=== PATIENT | male | born 1935 | race Hispanic/Latino ===

== ENCOUNTER → 2021-12-27 | Outpatient (CLI) | payer MEDICARE, OTHER ==
[~2021-12-27] MED LIST: IOHEXOL 350 MG/ML 100ML INFUS..BTL IV ONE
== END | disposition home or self-care (01) ==
LOC: EDBD 15:00 → RAH 18:18
PROVIDERS: ATTEND Internal Medicine
DX: J18.9 Pneumonia, unspecified organism (principal); I25.10 Atherosclerotic heart disease of native coronary artery without angina pectoris; I70.0 Atherosclerosis of aorta; K80.20 Calculus of gallbladder without cholecystitis without obstruction; E27.8 Other specified disorders of adrenal gland; R79.89 Other specified abnormal findings of blood chemistry; Z93.1 Gastrostomy status; Z86.711 Personal history of pulmonary embolism
CPT/HCPCS: 71270; Q9967